=== PATIENT | female | born 1990 | race Caucasian/White ===

== ENCOUNTER 2020-04-30 20:32 | Emergency (ER) | payer SELFPAY ==
--- NOTE | 2020-04-30 20:45 | ED_ITS ---
HPI - Dental/Oral General: Chief complaint: Dental/Oral Stated complaint: dental pain Time Seen by Provider: 04/30/20 20:45 Source: patient Mode of arrival: ambulatory Limitations: no limitations History of Present Illness: HPI Narrative: Patient is a nice 29-year-old female who presents to ED today with complaints of dental pain to a left lower tooth that she has had approximately 2 to 3 months after she broke the tooth however tooth has became increasingly painful over the past few days. She has not noticed any facial swelling, difficulty swallowing or trouble controlling secretions. No fevers. No other complaints at this time. She has scheduled herself for a dentist appointment on . Has tried several at home remedies w/o relief. MD Complaint: tooth pain Teeth map: 1. broken painful tooth Duration: constant Severity: moderate Relieving factors: nothing Associated symptoms: Denies ear or mastoid pain, fever(s) or odynophagia Review of Systems Const: Denies: fever(s), chills, body aches, fatigue or malaise ENMT: Reports: dental pain; Denies: odynophagia, swelling of lips/tongue, ear or mastoid pain or nasal congestion Card: Denies: chest pain GI: Denies: nausea or vomiting Musc: Denies: neck pain Skin/Breast: Denies: rash Neuro: Denies: headache(s) PFSH ED PFSH: Social History Smoking and tobacco status: never smoked Physical Exam Const: COMMON NORMALS: no acute distress, patient oriented x3, no limitations and alert HENMT: COMMON NORMALS: normocephalic, atraumatic, hearing grossly normal bilaterally, external ears normal, EAC's normal, TM's normal bilaterally, Normal external nose present, Normal nasal mucous membranes and turbinates present, moist oral mucous membranes, oropharynx normal and gingiva normal HEAD & SCALP: normal to inspection, normocephalic and atraumatic FACE & SINUS: normal facial exam and sinuses nontender NOSE: Normal external nose present and Normal nasal mucous membranes and turbinates present EXTERNAL EAR: Yes external ears normal EXTERNAL AUDITORY CANAL: EAC's normal TYMPANIC MEMBRANE: TM's normal bilaterally TEETH & GINGIVA: Yes other (overall fairly good dentition; broken 19 tooth with orajel filler present) THROAT: posterior oropharynx normal, tonsils normal and uvula midline Neck/C-Spine: COMMON NORMALS: full ROM and no lymphadenopathy OTHER: no submandibular swelling Neuro: COMMON NORMALS: patient oriented x3 SENSORIUM/ORIENTATION: Yes alert Course Vital Signs: Vital signs: Vital Signs Temperature 97.8 F 04/30/20 20:50 Respiratory Rate 18 04/30/20 20:50 Blood Pressure 140/90 04/30/20 20:50 Pulse Oximetry 98 04/30/20 20:50 Discharge Plan Discharge Patient Disposition: Home, Self-Care Clinical Impression: Pain, dental Condition: Stable Prescriptions: New tramadol 50 mg tablet 50 mg PO Q6H PRN (Reason: pain) Qty: 10 RF: 0 Discharge Orders: Discharge Order (Routine); Ordered 04/30/20 Ordered By: Yari Lopez Referrals: Nasim Simmons MD [Primary Care Provider] - Patient Instructions: Dental Caries (ED), Toothache (ED) Activity Restrictions/Additional Instructions: Keep appointment with dentist on as scheduled. Coding Level of Care Code ED [employer] Pl[employer] for Ashleigh Lemus
[2020-04-30 20:50] VITALS: BP 140/90; RESP 18; TEMP 36.6; O2SAT 98; BMI 32.0
[2020-04-30] MEDS: ketorolac 60 mg/2 mL INJ IM (21:09)
[2020-04-30] MEDS: HYDROcodone-acetaminophen 5-325 mg Tablet 1 TAB PO (21:09)
[2020-04-30 21:37] VITALS: BP 126/78; PULSE 67; RESP 17; O2SAT 99
== END 2020-04-30 21:38 | disposition home or self-care (01) ==
LOC: ER 21:03
PROVIDERS: Emergency Provider Physician Assistant; PCP Family Medicine
DX: K08.89 Other specified disorders of teeth and supporting structures (principal)
CPT/HCPCS: 12345; 96372; 99281; 99283; J1885

== ENCOUNTER 2022-09-19 09:46 | Emergency (ER) | payer SELFPAY ==
[2022-09-19 09:59] VITALS: BP 126/89; PULSE 88; RESP 16; TEMP 36.6; O2SAT 98; BMI 34.2
[2022-09-19 10:05] VITALS: BP 116/73; PULSE 85; O2SAT 97
--- NOTE | 2022-09-19 10:24 | XRR_ITS ---
PROCEDURE INFORMATION: Exam: XR Chest Exam date and time: 09/19/2022 11:31 AM Age: 31 years old Clinical indication: Cough and dyspnea; Prior surgery; Surgery type: Cholecystectomy; Additional info: Dyspnea/cough TECHNIQUE: Imaging protocol: Radiologic exam of the chest. Views: 1 view. COMPARISON: No relevant prior studies available. FINDINGS: Lungs: The lung parenchyma is clear. Pleural spaces: No pneumothorax. No pleural effusion. Heart/Mediastinum: The cardiomediastinal silhouette is within normal limits. Bones/joints: Unremarkable. Intraperitoneal space: Surgical clips in the right upper quadrant. XR/XR chest 1V portable [id number] IMPRESSION: No acute cardiopulmonary abnormality identified.
[2022-09-19 10:35] VITALS: BP 118/76; PULSE 78; O2SAT 96
--- NOTE | 2022-09-19 10:52 | ECG_ITS ---
[facility] Test Date: 2022-09-19 Pat Name: Nakita Schmitz Department: Room: Gender: Female Housing Assistant: : 1990 Requested By: Rodrigo Gramajo Order Number: [id number] Adrien MD: Jose Antunez M.D. Measurements Intervals [place] Rate: 73 P: 15 ID: [id number] QRS: 22 QRSD: 91 T: 41 QT: 374 QTc: 415 Interpretive Statements SINUS RHYTHM POSSIBLE ANTERIOR MYOCARDIAL INFARCTION , OF INDETERMINATE AGE [30 ms Q WAVE IN V3/V4, OR R < 0.2 mV IN V4] No previous ECG available for comparison Electronically Signed On 09-20-2022 14:08:46 [employer] by Jose Antunez M.D. [id number]
--- NOTE | 2022-09-19 10:57 | ED_ITS ---
HPI - SOB/Dyspnea General: Chief Complaint: Shortness of Breath/Dyspnea Stated Complaint: sob Time Seen by Provider: 09/19/22 10:09 Source: patient Mode of arrival: ambulatory History of Present Illness: HPI Narrative: 31-year-old female presents emergency room complaining of shortness of breath last couple days. She is exposed to virus or not sure what she has had a cough low-grade fever cough is minimally productive no vomiting no diarrhea. No muscle aches. No history of chronic respiratory illness. No chest pain. MD elicited complaint: shortness of breath and cough Onset (ago): day(s) (2) Timing: constant Severity: moderate Exacerbating factors: nothing Relieving factors: nothing Associated symptoms: Reports cough and fever(s); Deny abdominal pain, chest congestion, chest pain, diaphoresis, dizziness, extremity pain, hemoptysis, lightheadedness, myalgias, nausea, orthopnea, palpitations, paresthesias, polydipsia, polyuria, rash, sense of impending doom, syncope or vomiting Treatment prior to arrival: none Review of Systems Const: Reports: fever(s); Denies: chills, fatigue, malaise or diaphoresis ENMT: Denies: throat pain, ear or mastoid pain, nasal discharge or nasal congestion Card: Denies: chest pain, palpitations, lightheadedness, syncope or orthopnea Resp: Reports: non-productive cough; Denies: dyspnea, productive cough, hemoptysis or chest congestion GI: Denies: abdominal pain, nausea or vomiting : Denies: flank pain, difficulty voiding, dysuria, urinary frequency or urinary urgency Musc: Denies: extremity pain Skin/Breast: Denies: rash or pruritus Neuro: Denies: dizziness Endo: Denies: polyuria or polydipsia PFS ED PFSH: Social History Smoking and tobacco status: never smoked Physical Exam Const: COMMON NORMALS: no acute distress GENERAL APPEARANCE: cooperative an d comfortable ORIENTATION/CONSCIOUSNESS: Yes awake, Yes oriented to person, Yes oriented to place and Yes oriented to time HENMT: COMMON NORMALS: normocephalic, atraumatic, hearing grossly normal bilaterally, external ears normal, EAC's normal, TM's normal bilaterally, Normal nasal mucous membranes and turbinates present, moist oral mucous membranes and oropharynx normal HEAD & SCALP: normocephalic and atraumatic NOSE: Normal nasal mucous membranes and turbinates present EXTERNAL EAR: Yes external ears normal EXTERNAL AUDITORY CANAL: EAC's normal TYMPANIC MEMBRANE: TM's normal bilaterally Eye: COMMON NORMALS: Equal, round and reactive pupils present, EOMs intact bilaterally, conjunctivae normal and no scleral icterus CONJUNCTIVA: Yes conjunctivae normal PUPIL: Yes Equal, round and reactive pupils present Neck/C-Spine: COMMON NORMALS: full ROM, no lymphadenopathy, supple and no JVD Lymph: LYMPHATIC: no lymphadenopathy noted and no lymphedema noted Resp: COMMON NORMALS: normal respiratory effort, No retractions, No use of accessory muscles and clear to auscultation bilaterally AUSCULTATION: clear to auscultation bilaterally Cardio: COMMON NORMALS: no JVD, regular rate, regular rhythm and No murmurs present (Cardio) RATE: regular rate RHYTHM: regular rhythm GI: COMMON NORMALS: Soft to palpation and No hepatosplenomegaly present AUSCULTATION: Yes normoactive bowel sounds PALPATION: Yes Soft to palpation, No Tenderness to palpation present (GI), No Guarding due to palpation present (GI) and Yes No hepatosplenomegaly present Extremity: COMMON NORMALS: normal to inspection, capillary refill normal, no clubbing, cyanosis or edema, no calf tenderness and no pedal edema Neuro: SENSORIUM/ORIENTATION: Yes oriented to person, Yes oriented to place and Yes oriented to time Skin: COMMON NORMALS: no rashes or lesions noted GENERAL SKIN EXAM: no rashes or lesions noted Course Vital Signs: Vital signs: Vital Signs Temperature 97.8 F 09/19/22 09:59 Pulse Rate 73 09/19/22 12:04 Respiratory Rate 16 09/19/22 09:59 Blood Pressure 123/85 09/19/22 12:04 Pulse Oximetry 97 09/19/22 12:04 Oxygen Delivery Me thod 09/19/22 12:04 MDM - SOB/Dyspnea Medical Decision Making Viral respiratory infection supportive cares Tylenol or Profen as needed follow- up as needed Medical Records I reviewed the patient's medical records. Lab Data I reviewed the patient's lab results. 09/19/22 11:02 09/19/22 11:02 Labs/Radiology: Radiology Impressions Chest X-Ray 09/19/22 10:24 IMPRESSION: No acute cardiopulmonary abnormality identified. Laboratory Results WBC 10.0 10^3/uL (4.0-10.0) 09/19/22 11:02 RBC 4.63 10^6/uL (4.1-5.3) 09/19/22 11:02 Hgb 14.4 g/dL (11.5-15.3) 09/19/22 11:02 Hct 42.2 % (37.0-47.0) 09/19/22 11:02 MCV 91.1 fl (81-99) 09/19/22 11:02 MCH 31.1 pg (28.0-34.0) 09/19/22 11:02 MCHC 34.1 g/dL (30.0-36.0) 09/19/22 11:02 RDW 11.7 % (12.1-15.1) L 09/19/22 11:02 Plt Count 237 10^3/cmm (130-400) 09/19/22 11:02 MPV 10.4 fL (7.4-10.4) 09/19/22 11:02 Neut % (Auto) 70.4 % 09/19/22 11:02 Lymph % (Auto) 21.5 % 09/19/22 11:02 [place] % (Auto) 5.0 % 09/19/22 11:02 Eos % (Auto) 2.3 % 09/19/22 11:02 Baso % (Auto) 0.3 % 09/19/22 11:02 Neut # (Auto) 7.02 10^3/uL (1.8-7.7) 09/19/22 11:02 Lymph # (Auto) 2.2 10^3/uL (0.8-4.8) 09/19/22 11:02 [place] # (Auto) 0.5 10^3/uL (0.2-0.9) 09/19/22 11:02 Eos # (Auto) 0.2 10^3/uL (0.0-0.8) 09/19/22 11:02 Baso # (Auto) 0.0 10^3/uL (0.0-0.1) 09/19/22 11:02 Nucleated RBC % (auto) 0 % 09/19/22 11:02 Nucleated RBCs # 0.0 /100WBC 09/19/22 11:02 D-Dimer <= 0.27 ug/mIFEU (0-0.59) 09/19/22 11:02 Sodium 138 mmol/L (136-145) 09/19/22 11:02 Potassium 3.9 mmol/L (3.5-5.1) 09/19/22 11:02 Chloride 103 mmol/L (98-107) 09/19/22 11:02 Carbon Dioxide 24 mmol/L (22-29) 09/19/22 11:02 Anion Gap 14.9 (5-19) 09/19/22 11:02 BUN 8 mg/dL (6-20) 09/19/22 11:02 Creatinine 0.5 mg/dL (0.5-0.9) 09/19/22 11:02 GFR Calculation 145.9 mL/min (90-130) H 09/19/22 11:02 Glucose 116 mg/dL (65-115) H 09/19/22 11:02 Calculated Osmolality 285 mOsm/kg (285-295) 09/19/22 11:02 Calcium 9.4 mg/dL (8.5-10.5) 09/19/22 11:02 Total Bilirubin 0.3 mg/dL (0.15-1.2) 09/19/22 11:02 AST 34 U/L (0-32) H 09/19/22 11:02 ALT 63 U/L (0-33) H 09/19/22 11:02 Alkaline Phosphatase 89 U/L (35-105) 09/19/22 11:02 Total Protein 7.2 g/dL (6.6-8.7) 09/19/22 11:02 Albumin 4.3 g/dL (3.5-5.2) 09/19/22 11:02 Globulin 2.9 g/dL (1.3-4.6) 09/19/22 11:02 Adenovirus (PCR) Detected (NOT DETECT) A 09/19/22 13:07 Coronavirus 229E (PCR) Not detected (NOT DETECT) 09/19/22 11:09 Influenza Type A Ag negative (Negative) 09/19/22 11:08 Influenza Type B Ag negative (Negative) 09/19/22 11:08 SARS-CoV-2 (PCR) Not detected (NOT DETECT) 09/19/22 11:09 Discharge Plan Discharge Patient Disposition: Home Clinical Impression: Viral URI with cough Condition: Stable Prescriptions: New prednisone 20 mg tablet 20 mg PO TID Qty: 15 0RF Rx Instructions: 1 p.o. 3 times daily x3 days, 1 p.o. twice daily x2 days, 1 p.o. daily x2 days albuterol sulfate 90 mcg/actuation HFA aerosol inhaler 2 inh INHALATION Q4H PRN (Reason: shortness of breath or wheezing) Qty: 18 0RF No Action Advil 200 mg Tablet 200 mg PO Q6H PRN (Reason: Pain) Tylenol 325 mg Capsule 325 mg PO QID PRN (Reason: Pain) Discharge Orders: Discharge ED (Routine); Ordered 09/19/22 Ordered By: Rodrigo Fraire Discharge Diet: Usual diet Discharge Activity: Increase activity as tolerated Patient Instructions: Opioid Safety, Pain Management Activity Restrictions/Additional Instructions: You are seen for shortness of breath emergency room and there was no evidence of pneumonia blood clot or any other significant lung problem at the time you were seen. Your oxygen saturations were normal. Your COVID test is still pending we will contact you when the result is available. Recommend you maintain self quarantine until that time. You can use the albuterol inhaler as needed. Along with ibuprofen or Tylenol for discomfort. Coding Level of Care Code ED [employer] Tech for Ashleigh Lemus
[2022-09-19 11:00] VITALS: BP 128/77; PULSE 78; O2SAT 96
[2022-09-19 11:08] LABS: Basophils % 0.3 %; Eosinophils # 0.2 10^3/uL (0.0-0.8); Eosinophils % 2.3 %; Hematocrit 42.2 % (37.0-47.0); Hemoglobin 14.4 g/dL (11.5-15.3); Lymphocytes # 2.2 10^3/uL (0.8-4.8); Lymphocytes % 21.5 %; Mean Corpuscular HGB Conc 34.1 g/dL (30.0-36.0); Mean Corpuscular Hemoglobin 31.1 pg (28.0-34.0); Mean Corpuscular Volume 91.1 fl (81-99); Mean Platelet Volume 10.4 fL (7.4-10.4); Monocytes # 0.5 10^3/uL (0.2-0.9); Neutrophils # 7.02 10^3/uL (1.8-7.7); Neutrophils % 70.4 %; Nucleated Red Blood Cells % 0 %; Platelet Count 237 10^3/cmm (130-400); Red Blood Count 4.63 10^6/uL (4.1-5.3); Red Cell Distribution Width 11.7 % (12.1-15.1)
[2022-09-19 11:24] LABS: D Dimer <= 0.27 ug/mIFEU (0-0.59)
[2022-09-19 11:30] VITALS: BP 114/63; PULSE 66; O2SAT 94
[2022-09-19 11:34] LABS: Alanine Aminotransferase 63 U/L (0-33); Albumin Level 4.3 g/dL (3.5-5.2); Alkaline Phosphatase 89 U/L (35-105); Anion Gap 14.9 (5-19); Aspartate Amino Transferase 34 U/L (0-32); Blood Urea Nitrogen 8 mg/dL (6-20); Calcium 9.4 mg/dL (8.5-10.5); Carbon Dioxide 24 mmol/L (22-29); Chloride 103 mmol/L (98-107); Globulin 2.9 g/dL (1.3-4.6); Glomerular Filtration Rate 145.9 mL/min (90-130); Glucose 116 mg/dL (65-115); Osmolality Calculated 285 mOsm/kg (285-295); Potassium 3.9 mmol/L (3.5-5.1); Sodium 138 mmol/L (136-145); Total Bilirubin 0.3 mg/dL (0.15-1.2); Total Protein 7.2 g/dL (6.6-8.7)
[2022-09-19 11:36] LABS: Influenza A by IFA negative (Negative); Influenza B by IFA negative (Negative)
[2022-09-19 12:04] VITALS: BP 123/85; PULSE 73; O2SAT 97
[2022-09-19 13:04] LABS: Adenovirus Detected (NOT DETECT); Chlamydia Pneumoniae Not Detected (NOT DETECT); Coronavirus 229E,HKU1,NL63,OC4 Not Detected (NOT DETECT); Human Metapneumovirus Not Detected (NOT DETECT); Human Rhinovirus/Enterovirus Not Detected (NOT DETECT); Influenza A Not Detected (NOT DETECT); Influenza A H1 Not Detected (NOT DETECT); Influenza A H1-2009 Not Detected (NOT DETECT); Influenza A H3 Not Detected (NOT DETECT); Influenza B Not Detected (NOT DETECT); Mycoplasma Pneumoniae Not Detected (NOT DETECT); Parainfluenza Virus Type 1 Not Detected (NOT DETECT); Parainfluenza Virus Type 2 Not Detected (NOT DETECT); Parainfluenza Virus Type 3 Not Detected (NOT DETECT); Parainfluenza Virus Type 4 Not Detected (NOT DETECT); Respiratory Syncytial Virus A Not Detected (NOT DETECT); Respiratory Syncytial Virus B Not Detected (NOT DETECT); SARS-COV-2 Not Detected (NOT DETECT)
[2022-09-19 13:07] LABS: Adenovirus Detected (NOT DETECT); Results from Genmark
== END 2022-09-19 13:16 | disposition home or self-care (01) ==
PROVIDERS: Emergency Provider Family Medicine
DX: J06.9 Acute upper respiratory infection, unspecified (principal); R05.9 Cough, unspecified
CPT/HCPCS: 71045; 80053; 85025; 85378; 87635; 87798; 87804; 93005; 99285

== ENCOUNTER 2023-07-26 20:57 | Emergency (ER) | payer BC, MEDICAID, SELFPAY ==
[2023-07-26 21:18] VITALS: BP 124/81; PULSE 86; RESP 16; TEMP 36.9; O2SAT 95; BMI 31.3
--- NOTE | 2023-07-26 22:21 | W.ED.ANIMALB ---
HPI - Animal Bite General: Chief Complaint: Animal Bite Stated Complaint: Dog Bite Back Rt Leg Time Seen by Provider: 07/26/23 21:54 History of Present Illness: 32-year-old female presents emergency room with dog bite to the right posterior thigh within the past few hours. Patient further reveals that the dog was neighbors dog and the dog had rabies shot about 6 months ago according to the patient. Upon present emergency room patient was found to have superficial abrasion to the posterior aspect of thigh without any acute bleeding. Patient is any numbness, tingling, shortness of breath, fever or chills. Patient is up-to-date with her tetanus immunization Associated symptoms: Deny chills or fever(s) Review of Systems General: Reports: 10 or more systems reviewed and unremarkable except in HPI and below Const: Denies: fever(s), chills, body aches or change in appetite Card: Denies: chest pain, palpitations or irregular heart rhythm Skin/Breast: Reports: other (Dog bite wound to the posterior aspect of thigh); Denies: rash or pruritus PFSH ED PFSH: Social History Smoking and tobacco status: never smoked Physical Exam Const: COMMON NORMALS: no acute distress, average body habitus, patient oriented x3, no limitations, healthy appearing, alert and well nourished Resp: COMMON NORMALS: normal respiratory effort, No retractions, No use of accessory muscles, clear to auscultation bilaterally and percussion normal AUSCULTATION: clear to auscultation bilaterally PERCUSSION: percussion normal Extremity: COMMON NORMALS: normal to inspection, full ROM, capillary refill normal, no joint enlargement, no clubbing, cyanosis or edema, no calf tenderness and no pedal edema Neuro: COMMON NORMALS: patient oriented x3 SENSORIUM/ORIENTATION: Yes alert Skin: OTHER: Posterior right thigh with superficial abrasion without any acute bleeding. Course Vital Signs: Vital signs: Vital Signs Temperature 98.4 F 07/26/23 21:18 Pulse Rate 86 07/26/23 21:18 Respiratory Rate 16 07/26/23 21:18 Blood Pressure 124/81 07/26/23 21:18 Pulse Oximetry 95 07/26/23 21:18 Oxygen Delivery Me thod Room Air 07/26/23 21:18 MDM - Animal Bite Medical Decision Making Patient made comfortable emergency room. Patient was reassured about rabies infection. Patient was started on Augmentin. Close follow-up PCP recommended for further evaluation and treatment of the wound. Patient was given tetanus immunization. Differential Diagnosis Likely bite by animal, cat bite, dog bite and rabies contact No radiology studies performed this visit Discharge Plan Discharge Patient Disposition: Home Clinical Impression: Dog bite, Bite by animal Condition: Stable Prescriptions: New Augmentin 500-125 mg tablet 1 tab PO BID Qty: 20 0RF No Action Advil 200 mg Tablet 200 mg PO Q6H PRN (Reason: Pain) Tylenol 325 mg Capsule 325 mg PO QID PRN (Reason: Pain) prednisone 20 mg tablet 20 mg PO TID Qty: 15 0RF Rx Instructions: 1 p.o. 3 times daily x3 days, 1 p.o. twice daily x2 days, 1 p.o. 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
[2023-07-26] MEDS: tetanus-diphtheria tox (adult) 0.5 mL SDV IM (22:35)
[2023-07-26 22:42] VITALS: BP 121/69; PULSE 79; RESP 18; O2SAT 99
== END 2023-07-26 22:53 | disposition home or self-care (01) ==
PROVIDERS: Emergency Provider Family Medicine
DX: S71.151A Open bite, right thigh, initial encounter (principal); W54.0XXA Bitten by dog, initial encounter; Z23 Encounter for immunization
CPT/HCPCS: 90714; 99283